=== PATIENT | female | born 1975 | race Hispanic/Latino ===

== ENCOUNTER 2016-04-22 18:24 | Emergency (ER) | payer OTHER ==
[~2016-04-22] VITALS: Ht 167.6 cm; Wt 77.1 kg
[~2016-04-22 18:24] MED LIST: ALPRAZOLAM1 MG PO; DUREZOL 5 ML5 ML OD; FLU VACCINE 0.0.5 ML IM; FLUOXETINE40 MG PO; KEFLEX500 MG PO; MEDROXYPROG150 MG/ML IM; MOTRIN 600 MG600 MG PO; NAPROXEN500 MG PO; PHENTERMINE H37.5 M3 PO; PRILOSEC OTC20 MG PO; TOPIRAMATE100 MG PO; TRAMADOL HCL50 MG PO; ZOFRAN ODT4 MG PO
[2016-04-22] MEDS ORDERED: FOLIC ACID1 M1 PO (20:13)
[2016-04-22] MEDS ORDERED: FETZIMA80 M1 PO (20:13)
[2016-04-22] MEDS ORDERED: METHOTREXA25 MG/1 M5 IM (20:13)
[2016-04-22] MEDS ORDERED: ALPRAZOLAM0.5 M4 PO (20:14)
[2016-04-22] MEDS ORDERED: ROBAXIN-750750 M1 PO (20:14)
[2016-04-22] MEDS ORDERED: PREDNISONE5 M1 PO (20:14)
[2016-04-22] MEDS ORDERED: TRAZODONE HCL50 M1 (20:15)
[2016-04-22 21:03] VITALS: BP 135/82
[2016-04-22 21:58] LABS: ABSOLUTE BASOPHIL COUNT 0.1 /CUMM (0.0-0.2); ABSOLUTE EOSINOPHIL COUNT 0.1 /CUMM (0.0-0.7); ABSOLUTE GRANULOCYTE CT 4.2 /CUMM (1.4-6.5); ABSOLUTE MONOCYTE COUNT 0.9 /CUMM (0.10-0.60); BASOPHIL % 0.7 % (0.0-2.0); EOSINOPHIL % 1.7 % (0-5); GRANULOCYTE % 50.5 % (42.2-75.2); HEMATOCRIT 42.3 % (37-47); MEAN CORPUSCULAR HGB 32.8 PG (27.0-31.0); MEAN CORPUSCULAR VOLUME 96.4 FL (81.0-99.0); MEAN PLATELET VOLUME 7.2 FL (7.4-10.4); PLATELET COUNT 331 /CUMM (130-400); RBC DISTRIBUTION WIDTH 13.2 % (11.5-14.5); RED BLOOD CELL CT 4.39 /CUMM (4.20-5.40); WHITE BLOOD CELL COUNT 8.3 /CUMM (4.8-10.8)
--- NOTE | 2016-04-22 22:26 | RADIOLOGY REPORT ---
EXAMINATION: XR CHEST CLINICAL INFORMATION: Chest tightness. COMPARISON: No relevant prior studies are available for comparison. TECHNIQUE: PA and lateral views of the chest were obtained. FINDINGS: The lungs are clear. The cardiomediastinal silhouette is normal in size. There is no pleural effusion or pneumothorax. No abnormalities are noted in the visualized bones. IMPRESSION: No acute cardiopulmonary disease.
--- NOTE | 2016-04-22 23:26 | ED DYSPNEA/ASTHMA COMPLAINT ---
History of Present Illness General Chief Complaint: General Adult Stated Complaint: PT FEELS SYNCOPE , NOT FEELING WELL Source: patient Exam Limitations: no limitations Vital Signs & Intake/Output Vital Signs & Intake/Output Vital Signs Date Time Temp Pulse Resp B/P Pulse O2 O2 Flow FiO2 Ox Delivery Rate 04/22 2103 97.2 77 18 135/82 98 04/22 1845 98.8 109 18 164/94 99 Room Air ED Intake and Output 04/23 0000 04/22 1200 Intake Total Output Total Balance Patient 170 lb Weight Allergies Coded Allergies: NO KNOWN ALLERGIES (01/23/14) Per Dr Carranza on 12/13/11 Reconcile Medications Alprazolam 0.5 MG TABLET 1 TAB PO PRN ANXIETY (Reported) Folic Acid 1 MG TABLET 1 TAB PO DAILY SUPPLEMENT (Reported) Levomilnacipran Hydrochloride (Fetzima) 80 MG CAP.SA.24H 1 CAP PO DAILY DEPRESSION (Reported) Methocarbamol (Robaxin-750) 750 MG TABLET 1 TAB PO QHS MUSCLE RELAXER ( Reported) Methotrexate Sodium (Methotrexate) 25 MG/ML VIAL 1 ML IM QSAT PSORIATIC ARTHRITIS (Reported) Prednisone 5 MG TABLET 1 TAB PO DAILY PSORIATIC ARTHRITIS (Reported) Trazodone HCl (Unknown Strength) TABLET (Unknown Dose) UNKNOWN (Reported) Triage Note: PT STATES SHE STARTED THIS AM FEEING FATIGUED. STATES AT TIMES ITS HARD FOR HER TO TAKE A DEEP BREATHE. DENIES CHEST PAIN. DEIES COUGH/CHEST CONGESTION. STATES "I JUST FEEL WORN OUT" Triage Nurses Notes Reviewed? yes Onset: Abrupt Duration: hour(s): Timing: recent history Severity: moderate, severe : No Patient currently breastfeeds: No HPI: 41-year-old female comes into emergency room for further evaluation of shortness of breath has been going on for the past few hours. Denies any chest pain. Denies any heart palpitations diaphoresis nausea vomiting cough. Denies any upper respiratory symptoms. Nothing seems to make the symptoms better or worse. Patient reports that she has some diffuse pain from arthritis. Denies any other associated symptoms. (CRISTY MONIQUE) Past History Travel History Traveled to [place] past 21 day No Medical History Any Pertinent Medical History? 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 No (CRISTY MONIQUE) Review of Systems Review of Systems Constitutional: Reports: no symptoms. EENTM: Reports: no symptoms. Respiratory: Reports: see HPI. Cardiovascular: Reports: no symptoms. GI: Reports: no symptoms. Genitourinary: Reports: no symptoms. Musculoskeletal: Reports: no symptoms. Skin: Reports: no symptoms. Neurological/Psychological: Reports: no symptoms. Hematologic/Endocrine: Reports: no symptoms. Immunologic/Allergic: Reports: no symptoms. All Other Systems: Reviewed and Negative (CRISTY MONIQUE) Physical Exam Physical Exam General Appearance: well developed/nourished, no apparent distress, alert Head: atraumatic, normal appearance Eyes: Bilateral: normal appearance, EOMI. Ears, Nose, Throat: normal pharynx, hearing grossly normal Neck: normal inspection, full range of motion Respiratory: normal breath sounds, no respiratory distress Cardiovascular: regular rate/rhythm Gastrointestinal: soft Extremities: normal inspection Neurologic/Psych: awake, alert, oriented x 3, normal gait, normal mood/affect Skin: intact, normal color Core Measures ACS in differential dx? Yes Severe Sepsis Present: No Septic Shock Present: No (CRISTY MONIQUE) Progress Differential Diagnosis: asthma, AMI, bronchitis, costochondritis, CHF, COPD, musculoskeletal pain, pericarditis, pulmonary embolism, pneumonia, pneumothorax, rib fracture, unstable angina Plan of Care: Orders Procedure Date/time Status TROPONIN LEVEL 04/22 2124 Complete D-DIMER 04/22 2124 Complete COMPREHENSIVE METABOLIC PANEL 04/22 2124 Complete CBC WITHOUT DIFFERENTIAL 04/22 2124 Complete EKG 04/22 1844 Active Laboratory Tests 04/22/162149: Anion Gap 9, Estimated GFR > 60, BUN/Creatinine Ratio 12.9, Glucose 96, Calcium 9.5, Total Bilirubin 0.4, AST 25, ALT 36, Alkaline Phosphatase 49, Troponin I < 0.01, Total Protein 7.5, Albumin 4.5, Globulin 3.0, Albumin/Globulin Ratio 1.5, D-Dimer < 200, CBC w Diff NO MAN DIFF REQ, RBC 4.39, MCV 96.4, MCH 32.8 H, RDW 13.2, MPV 7.2 L, Gran % 50.5, Lymphocytes % 36.2, Monocytes % 10.9 H, Eosinophils % 1.7, Basophils % 0.7, Absolute Granulocytes 4.2, Absolute Lymphocytes 3.0, Absolute Monocytes 0.9 H, Absolute Eosinophils 0.1, Absolute Basophils 0.1, PUBS MCHC 34.0 Diagnostic Imaging: Viewed by Me: Radiology Read. Discussed w/RAD: Radiology Read. Radiology Impression: SERVICE DATE: 04/22/16 EXAM TYPE: RAD - XRY-CHEST XRAY, PA AND LATERAL EXAMINATION: XR CHEST CLINICAL INFORMATION: Chest tightness. COMPARISON: No relevant prior studies are available for comparison. TECHNIQUE: PA and lateral views of the chest were obtained. FINDINGS: The lungs are clear. The cardiomediastinal silhouette is normal in size. There is no pleural effusion or pneumothorax. No abnormalities are noted in the visualized bones. IMPRESSION: No acute cardiopulmonary disease. Initial ED EKG: normal intervals, normal p-waves, normal QRS complex, normal sinus rhythm, rate (101) (MARRY ATKINS,CRISTY) Departure Departure Disposition: HOME OR SELF CARE Condition: Stable Clinical Impression Primary Impression: Dyspnea Referrals: ASHANTI MORGAN,KARRIE Morales (PCP/Family) Additional Instructions: Follow-up with your primary care doctor. Return to the emergency room immediately if any other concerns worsening symptoms. Please go over all results of today's visit with your primary care doctor. Contact your primary care doctor to let them know you were here in the emergency room. There may be nonspecific findings which may not be related to your visit today here in the emergency room but may require further evaluation and chronic monitoring by your primary care doctor. If you had a laceration today the chance of foreign body always remains. You should follow-up with your primary care doctor for recheck in 3-5 days for a wound check. If you had an x-ray done there is a chance that a fracture could have been missed on initial read and you should follow-up with your primary care doctor for repeat x-rays if symptoms persist. If your blood pressure was elevated here in the emergency room please have rechecked by her primary care doctor within the next 48 hours by your primary care doctor. If you were prescribed a narcotic here in the emergency room or any type of controlled substances you're not allowed to drive while taking this medication or operate any type of heavy machinery. Narcotics can make you feel lightheaded dizziness nausea and can cause constipation. You may need to apple picker a stool softener. Thank you for choosing [facility] emergency room. Please return to the emergency room immediately if you have any other concerns worsening of symptoms. Departure Forms: Customer Survey General Discharge Information Comments 04/23/2016 1:02:13 AM Patient clinically looks well. Nontoxic-appearing. In no apparent distress. Patient resting comfortably in room. Patient has a negative d-dimer. Symptoms appear to be cardiac related. Patient has a history of rheumatoid arthritis. Case discussed with Dr. Samson. Lungs sounds clear. Cause of symptoms unclear. Patient recommended to follow up with primary care doctor. Return if any other concerns worsening symptoms. Patient understands and agrees with plan of care and wants to go home. (CRISTY MONIQUE) PA/INSURANCE VERIFY REP Co-Sign Statement Statement: ED Attending supervision documentation- [] I saw and evaluated the patient. I have also reviewed all the pertinent lab results and diagnostic results. I agree with the findings and the plan of care as documented in the PA's/INSURANCE VERIFY REP's documentation. [x] I have reviewed the ED Record and agree with the PA's/INSURANCE VERIFY REP's documentation. [] Additions or exceptions (if any) to the PAs/INSURANCE VERIFY REP's note and plan are summarized below: [] (AMANDA MORGAN,DOMINIC Little) Critical Care Note Critical Care Note Critical Care Time: non-applicable (CRISTY MONIQUE)
== END 2016-04-22 23:37 ==
LOC: ERH 18:24
PROVIDERS: Physician Assistant Medical
DX: R06.00 Dyspnea, unspecified (principal)
CPT/HCPCS: 93005; 93010

== ENCOUNTER 2017-08-15 20:07 | Emergency (ER) | payer OTHER ==
[~2017-08-15 20:07] MED LIST changes: +ALPRAZOLAM0.5 M4 PO; +FETZIMA80 M1 PO; +FOLIC ACID1 M1 PO; +METHOTREXA25 MG/1 M5 IM; +PREDNISONE5 M1 PO; +ROBAXIN-750750 M1 PO; +TRAZODONE HCL50 M1
[2017-08-15] MEDS ORDERED: TOPAMAX50 M1 PO (20:18)
--- NOTE | 2017-08-15 20:18 | ED CARDIAC/CP/PALPITATIONS ---
History of Present Illness General Chief Complaint: Chest Pain Stated Complaint: PT SIB WALK IN FOR CHEST PAIN Source: patient, family, old records Exam Limitations: no limitations Vital Signs & Intake/Output Vital Signs & Intake/Output Vital Signs Date Time Temp Pulse Resp B/P B/P Pulse O2 O2 Flow FiO2 Mean Ox Delivery Rate 08/16 2011 97.3 90 20 155/91 Allergies Coded Allergies: NO KNOWN ALLERGIES (01/23/14) Per Dr Carranza on 12/13/11 Reconcile Medications Alprazolam 0.5 MG TABLET 1 TAB PO PRN ANXIETY (Reported) Folic Acid 1 MG TABLET 1 TAB PO DAILY SUPPLEMENT (Reported) Levomilnacipran Hydrochloride (Fetzima) 80 MG CAP.SA.24H 1 CAP PO DAILY DEPRESSION (Reported) Methocarbamol (Robaxin-750) 750 MG TABLET 1 TAB PO QHS MUSCLE RELAXER ( Reported) Methotrexate Sodium (Methotrexate) 25 MG/ML VIAL 1 ML IM QSAT PSORIATIC ARTHRITIS (Reported) Prednisone 5 MG TABLET 1 TAB PO DAILY PSORIATIC ARTHRITIS (Reported) Topiramate (Topamax) 50 MG TABLET 1 TAB PO BID ANXIETY (Reported) Trazodone HCl (Unknown Strength) TABLET (Unknown Dose) UNKNOWN (Reported) Triage Note: PER PT CP TO L CW "PINCHING SINCE LAST NIGHT COMES AND GOES TODAY X 90 MINUTES WENT TO WALK IN SENT HERE Triage Nurses Notes Reviewed? yes : No Patient currently breastfeeds: No HPI: Patient was awoken at 3:00 in the morning with a pinching sensation in the left anterior aspect of her chest. The pain lasts a few seconds and then goes away. There is no radiation. There is no aggravating or mitigating factors. The symptoms have persisted periodically throughout the day. Patient cannot think of anything that she does rate the pain come on and it on before she even realizes it. There is no shortness of breath. There is no nausea or vomiting. Patient went to a walk-in center and they instructed her to come to the emergency department for evaluation. During the history she had one episode of the pain. The patient was on the telemetry monitoring at the time and he remained normal. The pain lasted less than 3 seconds before it was gone. Past History Travel History Traveled to [place] past 21 day No Medical History Any Pertinent Medical History? 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 No Review of Systems Review of Systems Constitutional: Reports: no symptoms. EENTM: Reports: no symptoms. Respiratory: Reports: no symptoms. Cardiovascular: Reports: see HPI, chest pain. GI: Reports: no symptoms. Genitourinary: Reports: no symptoms. Musculoskeletal: Reports: no symptoms. Skin: Reports: no symptoms. Neurological/Psychological: Reports: no symptoms. Hematologic/Endocrine: Reports: no symptoms. Immunologic/Allergic: Reports: no symptoms. All Other Systems: Reviewed and Negative Physical Exam Physical Exam General Appearance: well developed/nourished, alert, awake, anxious, mild distress Head: atraumatic, normal appearance Eyes: Bilateral: PERRL, EOMI. Ears, Nose, Throat: normal pharynx, normal ENT inspection, hearing grossly normal Neck: normal inspection, supple, full range of motion Respiratory: normal breath sounds, chest non-tender, no respiratory distress, lungs clear Cardiovascular: regular rate/rhythm, normal peripheral pulses Gastrointestinal: normal bowel sounds, soft, non-tender, no organomegaly Back: normal inspection, normal range of motion Extremities: normal inspection, normal capillary refill, normal range of motion, no edema Neurologic/Psych: no motor/sensory deficits, awake, alert, oriented x 3, normal gait, normal mood/affect Skin: intact, normal color, warm/dry Core Measures ACS in differential dx? No CVA/TIA Diagnosis No Sepsis Present: No Sepsis Focused Exam Completed? No Progress Differential Diagnosis: AMI, cholecystitis, costochondritis, musculoskeletal pain, myocarditis, pericarditis, pulmonary embolism Plan of Care: Orders Procedure Date/time Status Telemetry/Orthotics Technician 08/15 2028 Active TROPONIN LEVEL 08/15 2028 Complete HUMAN BETA HCG SCREEN 08/15 2028 Complete D-DIMER 08/15 2028 Complete COMPREHENSIVE METABOLIC PANEL 08/15 2028 Complete CBC WITHOUT DIFFERENTIAL 08/15 2028 Complete EKG 08/15 2008 Active Laboratory Tests 08/15/172031: Anion Gap 14, Estimated GFR > 60, BUN/Creatinine Ratio 14.4, Glucose 84, Calcium 9.7, Total Bilirubin 0.6, AST 25, ALT 16, Alkaline Phosphatase 48, Troponin I < 0.01, Total Protein 7.8, Albumin 4.4, Globulin 3.4, Albumin/Globulin Ratio 1.3, Total Beta HCG NEGATIVE, D-Dimer High Sensitivty < 200, CBC w Diff NO MAN DIFF REQ, RBC 4.59, MCV 95.4, MCH 32.2 H, MCHC 33.8, RDW 12.2, MPV 7.7, Gran % 57.6, Lymphocytes % 31.3, Monocytes % 9.0, Eosinophils % 1.2, Basophils % 0.9, Absolute Granulocytes 4.3, Absolute Lymphocytes 2.4, Absolute Monocytes 0.7 H, Absolute Eosinophils 0.1, Absolute Basophils 0.1 Initial ED EKG: NSR, no ST T wave changes Prior EKG: unchanged Rhythm Strip: normal sinus rhythm Comments: Patient updated on lab results. Patient is stable for discharge at this time. Questions have been answered. Departure Departure Disposition: HOME OR SELF CARE Condition: Stable Clinical Impression Primary Impression: Chest pain, unspecified Referrals: Kendy Jaquez MD, MD,Tod Little. Additional Instructions: Return if symptoms worsen or for any concerns Please follow up with the wrapper sorter provided and your regualr doctor. The only thing we can tell you for sure is that you did not have a heart attack at this time. There are any more things that will need to be evaluated on your heart that the wrapper sorter will do. If you develop pain before seeing the wrapper sorter, or you have any concerns, please return immediatley to the emergency department. Departure Forms: Customer Survey General Discharge Information Critical Care Note Critical Care Note Critical Care Time: non-applicable
[2017-08-15 20:42] LABS: ABSOLUTE BASOPHIL COUNT 0.1 /CUMM (0.0-0.2); ABSOLUTE EOSINOPHIL COUNT 0.1 /CUMM (0.0-0.7); ABSOLUTE GRANULOCYTE CT 4.3 /CUMM (1.4-6.5); ABSOLUTE LYMPH COUNT 2.4 /CUMM (1.2-3.4); ABSOLUTE MONOCYTE COUNT 0.7 /CUMM (0.10-0.60); BASOPHIL % 0.9 % (0.0-2.0); EOSINOPHIL % 1.2 % (0-5); GRANULOCYTE % 57.6 % (42.2-75.2); HEMATOCRIT 43.8 % (37-47); MEAN CORPUSCULAR HGB 32.2 PG (27.0-31.0); MEAN CORPUSCULAR HGB CONC 33.8 G/DL (33.0-37.0); MEAN CORPUSCULAR VOLUME 95.4 FL (81.0-99.0); MEAN PLATELET VOLUME 7.7 FL (7.4-10.4); PLATELET COUNT 329 /CUMM (130-400); RBC DISTRIBUTION WIDTH 12.2 % (11.5-14.5); RED BLOOD CELL CT 4.59 /CUMM (4.20-5.40); WHITE BLOOD CELL COUNT 7.5 /CUMM (4.8-10.8)
[2017-08-15 22:03] VITALS: BP 132/80
[2017-08-15] MEDS ORDERED: SULFASALAZINE500 M3 PO (22:03)
== END 2017-08-15 22:11 ==
LOC: ERH 20:07
PROVIDERS: Emergency Medicine
DX: R07.9 Chest pain, unspecified (principal)
CPT/HCPCS: 93005; 93010